=== PATIENT | male | born 1990 | race Caucasian/White ===

== ENCOUNTER → 2017-01-31 | Outpatient (CLI) | payer BC ==
[~2017-01-31] MED LIST: ALBU1.25 NEB; CETI10CA PO; FLUT16SP2 NAS
== END | disposition home or self-care (01) ==
LOC: CFH 12:38
PROVIDERS: ATTEND Internal Medicine Cardiovascular Disease
DX: I48.91 Unspecified atrial fibrillation (principal); I37.1 Nonrheumatic pulmonary valve insufficiency; I07.1 Rheumatic tricuspid insufficiency; R53.1 Weakness
CPT/HCPCS: 93306

== ENCOUNTER → 2017-04-26 | Outpatient (CLI) | payer BC | END | disposition home or self-care (01) | LOC: CARD 10:18 | PROVIDERS: ATTEND Internal Medicine Cardiovascular Disease | DX: I48.91 Unspecified atrial fibrillation (principal) | CPT/HCPCS: 93017 ==

== ENCOUNTER → 2017-05-16 | Outpatient (CLI) | payer BC ==
[~2017-05-16] VITALS: Ht 175.3 cm; Wt 74.5 kg
[~2017-05-16] MED LIST changes: +ASCO10004 PO; +LACT1CAP37 PO; +MULT-718 PO; +OMNIPAQUE 350 MG/ML, 150 ML BOTTLE ONE
[2017-05-16 10:40] VITALS: BP 152/88
[2017-05-16 11:32] LABS: HEMOGLOBIN 17.5 g/dL (13.7-18.0); WHITE BLOOD COUNT 5.9 x10^3/uL (3.4-10)
[2017-05-16 11:47] LABS: BLOOD UREA NITROGEN 16 mg/dL (7-18)
[2017-05-16 11:51] LABS: ASPARTATE AMINO TRANSFERASE 27 U/L (15-37)
== END | disposition home or self-care (01) ==
LOC: CFH 08:39
PROVIDERS: ATTEND Internal Medicine Cardiovascular Disease
DX: I48.91 Unspecified atrial fibrillation (principal)
CPT/HCPCS: 36415; 75572; 80053; 82565; 85025; 85610; 85730; Q9967

== ENCOUNTER 2017-05-18 07:02 | Observation (INO) | payer BC ==
[~2017-05-18] VITALS: Ht 175.3 cm; Wt 78.9 kg
[~2017-05-18 07:02] MED LIST changes: -OMNIPAQUE 350 MG/ML, 150 ML BOTTLE ONE
[2017-05-18] MEDS ORDERED: SODIUM CHLORIDE 0.9% 1,000 ML IV SCH (07:14)
[2017-05-18] MEDS ORDERED: SODIUM CHLORIDE 0.9% 1,000 ML IV ONE (07:30)
[2017-05-18] MEDS ORDERED: FENTANYL PF 250 MCG/5ML ONE ×2 (07:42→08:47)
[2017-05-18] MEDS ORDERED: MIDAZOLAM 1 MG/ML, 5ML ONE (07:43)
[2017-05-18] MEDS ORDERED: HEPARIN 1,000 UNITS/ML, 10ML ONE ×2 (07:46→09:46)
[2017-05-18] MEDS ORDERED: ISOPROTERENOL 0.2MG/ML, 5ML ONE (07:46)
[2017-05-18] MEDS ORDERED: LIDOCAINE 2%, 20ML ONE (07:46)
[2017-05-18] MEDS ORDERED: DEXAMETHASONE 4 MG/ML, 1ML ONE (08:00)
[2017-05-18] MEDS ORDERED: ONDANSETRON 2MG/ML, 2ML ONE (08:00)
[2017-05-18] MEDS ORDERED: PROPOFOL 10 MG/ML, 20ML ONE (08:00)
[2017-05-18] MEDS ORDERED: SUCCINYLCHOLINE 20 MG/ML, 10ML ONE (08:00)
[2017-05-18] MEDS ORDERED: PROTAMINE SULFATE 10 MG/ML, 5ML ONE (10:59)
[2017-05-18] MEDS ORDERED: ACETAMINOPHEN 325 MG TABLET PO PRN (11:00)
[2017-05-18] MEDS ORDERED: TEMPLATE NON-FORMULARY MED. (Albuterol Sulfate (Albuterol Sulfate**) 1 VIAL) NEB PRN (11:00)
[2017-05-18] MEDS ORDERED: ZOLPIDEM 5MG TABLET PO PRN (11:00)
[2017-05-18] MEDS ORDERED: HYDROcodone/APAP 5/325 TABLET PO ONE (11:30)
[2017-05-18] MEDS ORDERED: FENTANYL PF 100 MCG/2ML IV PRN (12:00)
[2017-05-18] MEDS ORDERED: ONDANSETRON 2MG/ML, 2ML IVPush PRN (12:00)
[2017-05-18] MEDS ORDERED: PROMETHAZINE 25 MG/ML, 1ML IV PRN (12:00)
[2017-05-18] MEDS ORDERED: MEPERIDINE/PF 25MG/0.5ML IVPush PRN (12:00)
[2017-05-18] MEDS ORDERED: MIDAZOLAM 1 MG/ML, 2ML IV PRN (12:00)
[2017-05-18] MEDS ORDERED: HYDROmorphone 1 MG/ML, 1ML IV PRN (12:00)
[2017-05-18] MEDS ORDERED: OXYcodone 5 MG/5 ML ORAL.SOL UDC PO PRN (12:00)
[2017-05-18] MEDS ORDERED: OXYcodone 5 MG/5 ML ORAL.SOL UDC ONE (12:30)
[2017-05-18] MEDS ORDERED: ACETAMINOPHEN 650 MG/20.3 ML UDC ONE (12:30)
[2017-05-18] MEDS ORDERED: FENTANYL PF 100 MCG/2ML ONE (12:30)
[2017-05-18] MEDS: CETIRIZINE 10 MG TABLET PO SCH (13:30)
[2017-05-18] MEDS ORDERED: ALBUTEROL SULFATE 2.5 MG/3 ML NPPB PRN (14:00)
[2017-05-18] MEDS ORDERED: APIXABAN 5 MG TABLET PO ONE ×2 (15:00→15:30)
[2017-05-18 15:43] VITALS: BP 125/77
[2017-05-18 19:37] VITALS: BP 134/84
[2017-05-18] MEDS: APIXABAN 5 MG TABLET PO SCH (20:24)
[2017-05-19 01:48] VITALS: BP 112/64
[2017-05-19] MEDS ORDERED: APIX5TAB PO (07:30)
[2017-05-19] MEDS ORDERED: KETOROLAC 30 MG/1 ML IVPush ONE (07:30)
[2017-05-19 08:01] VITALS: BP 128/77
[2017-05-19] MEDS: CETIRIZINE 10 MG TABLET PO SCH (08:30)
[2017-05-19] MEDS: APIXABAN 5 MG TABLET PO SCH (08:31)
[2017-05-19] MEDS ORDERED: FLUTICASONE NASAL SPRAY 16GM NAS SCH ×2 (09:00)
[2017-05-19] MEDS ORDERED: ASCORBIC ACID 500 MG TABLET PO SCH ×2 (09:00)
[2017-05-19] MEDS ORDERED: MULTIVITAMIN 1 TABLET PO SCH ×2 (09:00)
[2017-05-19] MEDS ORDERED: CETIRIZINE 10 MG TABLET PO SCH (09:00)
[2017-05-19] MEDS ORDERED: LACTOBACILLUS CHEW TABLET PO SCH ×2 (09:00)
[2017-05-19 13:26] VITALS: BP 135/81
== END 2017-05-19 15:10 | disposition home or self-care (01) ==
LOC: CACL 07:02 → ORIP 10:57 → 5SO 13:17 → DCLOUNGE 05-19 14:52
PROVIDERS: ADMIT Internal Medicine Cardiovascular Disease; ATTEND Internal Medicine Cardiovascular Disease
DX: I48.91 Unspecified atrial fibrillation (principal); I49.5 Sick sinus syndrome
CPT/HCPCS: 71020; 85347; 93005; 93308; 93312; 93321; 93325; 93613; 93656; 93662; 96374; C1730; C1732; C1759; C1766; C1893; C1894; G0378; J0330; J1100; J1644; J1885; J2250; J2405; J2704; J2720; J3010; J3490

== ENCOUNTER 2020-09-16 10:34 | Emergency (ER) | payer BC, OTHER ==
[~2020-09-16] VITALS: Ht 170.2 cm; Wt 79.0 kg
[~2020-09-16 10:34] MED LIST changes: +APIX5TAB PO; +ASCO100018 PO; -ASCO10004 PO
[2020-09-16] MEDS ORDERED: ASPIRIN 81 MG TABLET CHEW ONE (11:21)
[2020-09-16] MEDS ORDERED: SODIUM CHLORIDE FLUSH 10ML SYR IVF ONE (11:30)
[2020-09-16] MEDS ORDERED: ASPIRIN 81 MG TABLET CHEW PO ONE (11:30)
--- NOTE | 2020-09-16 11:40 | NUR ---
PT PLACED ON ALL ROOM MONITORING. WARM BLANKET PROVIDED, CALL LIGHT WITHIN REACH. IV PLACED, LABS DRAWN WITH START. PCXR COMPLETED, US AT BS.
[2020-09-16 11:55] LABS: BASOPHILS % (AUTO) 0 % (0-1); EOSINOPHILS % (AUTO) 1 % (1-7); LYMPHOCYTES % (AUTO) 19 % (22-44); MEAN CORPUSCULAR HEMOGLOBIN 30.7 pg (27.5-34.5); MEAN CORPUSCULAR HGB CONC 34.6 g/dL (33.2-36.2); MEAN PLATELET VOLUME 7.7 fL (7.4-10.4); MONOCYTES % (AUTO) 8 % (2-9); NEUTROPHILS % (AUTO) 72 % (42-75); PLATELET COUNT 378 x10^3/uL (130-400); RED CELL DISTRIBUTION WIDTH 13.1 % (9.4-14.8)
[2020-09-16 12:01] LABS: ALBUMIN 4.3 g/dL (3.4-5.0); ANION GAP 6 mmol/L (5-15); CALCIUM 9.6 mg/dL (8.5-10.1); CHLORIDE 111 mmol/L (98-107); CREATININE 1.12 mg/dL (0.7-1.3)
[2020-09-16 12:05] LABS: TROPONIN I < 0.015 ng/mL (0.000-0.045)
[2020-09-16 12:09] LABS: MD NO
--- NOTE | 2020-09-16 12:15 | NUR ---
ROUNDED ON PT, PT RESTING, NAD. CALL LIGHT WITHIN REACH. DISCOMFORT UNCHANGED. VSS/UPDATED IN COMPUTER. AWAITING DDIMER RESULT.
[2020-09-16] MEDS ORDERED: LORazepam 2 MG/ML, 1ML IVPush ONE (12:30)
[2020-09-16] MEDS ORDERED: LORazepam 2 MG/ML, 1ML ONE (12:39)
--- NOTE | 2020-09-16 12:44 | NUR ---
ATIVAN GIVEN PER ERP ORDER. CALL LIGHT WITHIN REACH, DR PASCAL IN TO SEE PT.
[2020-09-16 13:19] VITALS: BP 131/75
== END 2020-09-16 13:39 | disposition home or self-care (01) ==
LOC: ED 12:09
DX: R00.0 Tachycardia, unspecified (principal); R07.89 Other chest pain; R11.0 Nausea; R00.2 Palpitations; I48.91 Unspecified atrial fibrillation; M79.89 Other specified soft tissue disorders
CPT/HCPCS: 36415; 71045; 80048; 82040; 83880; 84484; 85025; 85379; 93005; 93971; 96374; 99285; J2060

== ENCOUNTER 2020-09-17 16:50 | Emergency (ER) | payer OTHER ==
[~2020-09-17] VITALS: Ht 170.2 cm; Wt 80.6 kg
--- NOTE | 2020-09-17 17:23 | NUR ---
PT REPORTS COMING INTO ED YESTERDAY FOR CP. TODAY STATES HE WOKE UP WITH PURPLE VISION IN THE LEFT EYE AND NUMBNESS BETWEEN LEFT EYE AND EAR. PT STATES IT NOW FEELS THOUGH IT IS MOVING UP INTO HIS FOREHEAD. PT STATES HE IS SLIGHTLY DIZZY WITH WEAKNESS IN BOTH ARMS AND LEGS. GROSS NEURO INTACT, PERRLA INTACT, ANOx4. FACIAL SYMMETRY NOTED. WCTM PT PLACED ON SPO2/BP/ECG MONITORING.
--- NOTE | 2020-09-17 18:12 | NUR ---
PT TO CT AT THIS TIME
--- NOTE | 2020-09-17 18:22 | NUR ---
pt to ct at this time, nad, no change in condition, wctm.
[2020-09-17 18:32] LABS: BASOPHILS % (AUTO) 1 % (0-1); EOSINOPHILS % (AUTO) 1 % (1-7); LYMPHOCYTES % (AUTO) 21 % (22-44); MEAN CORPUSCULAR HEMOGLOBIN 30.7 pg (27.5-34.5); MEAN CORPUSCULAR HGB CONC 34.1 g/dL (33.2-36.2); MEAN PLATELET VOLUME 7.7 fL (7.4-10.4); MONOCYTES % (AUTO) 11 % (2-9); NEUTROPHILS % (AUTO) 66 % (42-75); PLATELET COUNT 395 x10^3/uL (130-400); RED BLOOD COUNT 5.68 x10^6/uL (4.38-5.82); RED CELL DISTRIBUTION WIDTH 12.9 % (9.4-14.8)
[2020-09-17 18:41] LABS: CHLORIDE 108 mmol/L (98-107)
[2020-09-17 18:44] LABS: MD NO
[2020-09-17 18:50] LABS: ALANINE AMINOTRANSFERASE 44 U/L (12-78); ALKALINE PHOSPHATASE 90 U/L (45-117); ANION GAP 6 mmol/L (5-15); BILIRUBIN,TOTAL 0.3 mg/dL (0.2-1.0); CREATININE 0.99 mg/dL (0.7-1.3); TOTAL PROTEIN 7.4 g/dL (6.4-8.2); TROPONIN I < 0.015 ng/mL (0.000-0.045)
[2020-09-17 19:10] LABS: MICROSCOPIC AUTO
--- NOTE | 2020-09-17 19:51 | NUR ---
pt resting on el[facility] roman, waiting for ct read, no change in condition, provided ice chips for comfort, wctm.
--- NOTE | 2020-09-17 19:55 | NUR ---
PT REPORTS NAUSEA AT THIS TIME. NAD, NO CHANGE IN CONDITION, WCTM.
[2020-09-17] MEDS ORDERED: ONDANSETRON ODT 8 MG ONE (20:41)
[2020-09-17] MEDS ORDERED: ONDANSETRON ODT 8 MG PO ONE (21:00)
[2020-09-17] MEDS ORDERED: ONDANSETRON 2MG/ML, 2ML IVPush ONE (21:00)
[2020-09-17] MEDS ORDERED: SODIUM CHLORIDE 0.9% 1,000ML IVBOLUS ONE ×2 (21:00→21:30)
[2020-09-17] MEDS ORDERED: SODIUM CHLORIDE FLUSH 10ML SYR IVF ONE (21:30)
[2020-09-17] MEDS ORDERED: MECLIZINE CHEWABLE 25 MG TAB PO ONE (21:30)
--- NOTE | 2020-09-17 21:30 | NUR ---
LATE ENTRY D/T PT CARE: PT NAD, RESTING ON GURNEY, APPEARS COMFORTABLE, NO CHANGE IN CONDITION, WCTM.
[2020-09-17] MEDS ORDERED: MECLIZINE CHEWABLE 25 MG TAB ONE (21:55)
[2020-09-17] MEDS ORDERED: ALBUTEROL SULFATE 2.5 MG/3 ML NEB PRN (22:30)
[2020-09-17] MEDS ORDERED: POTASSIUM CHLORIDE 20 MEQ TAB.ER.PRT PO ONE (22:30)
[2020-09-17] MEDS ORDERED: ACETAMINOPHEN 650 MG/20.3 ML UDC PO PRN (22:30)
[2020-09-17] MEDS ORDERED: POLYETHYLENE GLYCOL 17 GM PACKET PO PRN (22:30)
[2020-09-17] MEDS ORDERED: ONDANSETRON 4 MG TABLET PO PRN (22:30)
[2020-09-17] MEDS ORDERED: DOCUSATE 100 MG CAPSULE PO PRN (22:30)
[2020-09-17] MEDS ORDERED: LABETALOL 5MG/ML, 20ML IV PRN (22:30)
[2020-09-17] MEDS ORDERED: BISACODYL 10 MG SUPP PR PRN (22:30)
[2020-09-17] MEDS ORDERED: GADOTERATE 10 MMOL/20 ML VIAL ONE (22:34)
--- NOTE | 2020-09-17 22:40 | NUR ---
RN CHANGED LINENS PER REQUEST, APPLIED CONDOM CATH FOR COMFORT, NAD, DENIES ADDITIONAL NEEDS WCTM.
[2020-09-17] MEDS ORDERED: POTASSIUM CHLORIDE 20 MEQ TAB.ER.PRT ONE (23:28)
[2020-09-17 23:29] LABS: HCT (SEDRATE) 51.1 % (39.2-51.8)
--- NOTE | 2020-09-18 00:01 | NUR ---
PT MEDICATED PER MAR, DENIES WANTING MEAL AT THIS TIME, NAD, RESTING ON GURNEY. PROVIDED PILLOW FOR COMFORT, UPDATED ON POC, WCTM . WAITING FOR ADMIT BED
--- NOTE | 2020-09-18 00:58 | NUR ---
REPORT FROM FRANCHESKA PATE.
--- NOTE | 2020-09-18 01:00 | NUR ---
BEDSIDE REPORT TO ALESSIA PATE, PT CARE TRANSFERRED AT THIS TIME. PT NAD, RESTING ON GURNEY, STATES HE IS UNABLE TO SLEEP, DENIES ADDITIONAL NEEDS, NO CHANGE IN CONDITION, WCTM.
--- NOTE | 2020-09-18 02:16 | NUR ---
PT PROVIDED WITH WATER, TOLERATED PO FLUIDS NO DIFFICULTY AT THIS TIME [facility]
--- NOTE | 2020-09-18 02:45 | NUR ---
report received from ciaran angelo
--- NOTE | 2020-09-18 03:52 | NUR ---
pt moved to hospital bed, requesting water.
--- NOTE | 2020-09-18 05:00 | NUR ---
PT SLEEPING, NO NEEDS AT THIS TIME. RESP EVEN AND UNLABORED
[2020-09-18 05:28] LABS: BASOPHILS % (AUTO) 0 % (0-1); EOSINOPHILS % (AUTO) 1 % (1-7); LYMPHOCYTES % (AUTO) 24 % (22-44); MEAN CORPUSCULAR HEMOGLOBIN 30.7 pg (27.5-34.5); MEAN PLATELET VOLUME 7.8 fL (7.4-10.4); MONOCYTES % (AUTO) 10 % (2-9); NEUTROPHILS % (AUTO) 64 % (42-75); PLATELET COUNT 357 x10^3/uL (130-400); RED BLOOD COUNT 5.31 x10^6/uL (4.38-5.82); RED CELL DISTRIBUTION WIDTH 12.7 % (9.4-14.8)
[2020-09-18 05:29] LABS: ALBUMIN 3.6 g/dL (3.4-5.0); ANION GAP 7 mmol/L (5-15); CALCIUM 8.3 mg/dL (8.5-10.1); CHLORIDE 108 mmol/L (98-107)
[2020-09-18 05:33] LABS: ALANINE AMINOTRANSFERASE 40 U/L (12-78); ALKALINE PHOSPHATASE 77 U/L (45-117); BILIRUBIN,TOTAL 0.6 mg/dL (0.2-1.0); CHOL/HDL RATIO 6.3; CHOLESTEROL, TOTAL 227 mg/dL (140-239); CREATININE 1.02 mg/dL (0.7-1.3); HDL CHOL % 16 % (26-37); HDL CHOLESTEROL (DIRECT) 36 mg/dL (40-60); LDL CHOLESTEROL,CALCULATED 156 mg/dL (54-169); LDL/HDL RATIO 4.3 (0.5-3.0); TOTAL PROTEIN 6.7 g/dL (6.4-8.2); TRIGLYCERIDES 174 mg/dL (50-200); VLDL CHOLESTEROL 35 mg/dL (0-25)
[2020-09-18 05:39] LABS: MD NO
--- NOTE | 2020-09-18 06:06 | NUR ---
PT SLEEPING, NO NEEDS AT THIS TIME. RESP EVEN AND UNLABORED
--- NOTE | 2020-09-18 07:00 | NUR ---
report given to carmelita angelo
[2020-09-18 07:05] VITALS: BP 118/67
--- NOTE | 2020-09-18 07:54 | NUR ---
MORNING MEDS REQ FROM PHARMACY.
--- NOTE | 2020-09-18 08:12 | NUR ---
PT HAS C/O NEW LT SIDED LIP NUMBNESS UPON WAKING THIS MORNING, MESSAGE LEFT FOR .
--- NOTE | 2020-09-18 08:37 | NUR ---
TELEPHONE CALL ESTEFANY ALARCON, UPDATED ON PT CONCERNS. STATES WAITING FOR CAROTID STUDIES, POTENTIAL FO DC TODAY.
--- NOTE | 2020-09-18 08:56 | NUR ---
PT PROVIDED W/ MEAL TRAY. RESTING ON HOSPITAL BED W/ CALL LIGHT IN REACH AND SIDE RAILS UPX2. RESP EVEN AND UNLABORED, CLAY.
[2020-09-18] MEDS ORDERED: ASPIRIN 81 MG TABLET CHEW PO/NG SCH (09:00)
[2020-09-18] MEDS ORDERED: ASCORBIC ACID 500 MG TABLET PO SCH (09:00)
[2020-09-18] MEDS ORDERED: CETIRIZINE 10 MG TABLET PO SCH (09:00)
[2020-09-18] MEDS ORDERED: MULTIVITAMINS/MINERALS TABLET PO SCH (09:00)
[2020-09-18] MEDS ORDERED: FLUTICASONE NASAL SPRAY 16GM NAS SCH (09:00)
[2020-09-18] MEDS ORDERED: MECL25TA PO (12:12)
[2020-09-18] MEDS ORDERED: ATORVASTATIN 40 MG TABLET PO SCH (21:00)
== END 2020-09-18 12:38 | disposition home or self-care (01) ==
LOC: ED 19:30 → UNDOADMIN 09-18 00:37 → EDIP 09-18 00:37
DX: G80.9 Cerebral palsy, unspecified (principal); R20.2 Paresthesia of skin; R42 Dizziness and giddiness; I51.7 Cardiomegaly; R00.0 Tachycardia, unspecified; H53.9 Unspecified visual disturbance; I48.91 Unspecified atrial fibrillation
CPT/HCPCS: 36415; 70450; 70553; 80053; 80061; 81001; 83735; 84484; 85025; 85651; 93005; 96360; 96361; 99285; A9575; J7030; Q0162

== ENCOUNTER 2020-12-17 05:23 | Observation (INO) | payer OTHER ==
[~2020-12-17] VITALS: Ht 170.2 cm; Wt 79.1 kg
[~2020-12-17 05:23] MED LIST changes: +MECL25TA PO
[2020-12-17 06:26] VITALS: BP 142/91
[2020-12-17] MEDS ORDERED: SODIUM CHLORIDE 0.9% 1,000 ML IV SCH (06:30)
[2020-12-17] MEDS ORDERED: SODIUM CHLORIDE 0.9% 1,000 ML IV ONE (06:30)
[2020-12-17] MEDS ORDERED: APIX5TAB PO (06:38)
[2020-12-17] MEDS ORDERED: ALBU8.5H8 INH (06:38)
[2020-12-17 06:48] LABS: BASOPHILS % (AUTO) 1 % (0-1); EOSINOPHILS % (AUTO) 3 % (1-7); LYMPHOCYTES % (AUTO) 37 % (22-44); MEAN CORPUSCULAR HEMOGLOBIN 30.6 pg (27.5-34.5); MEAN CORPUSCULAR HGB CONC 34.9 g/dL (33.2-36.2); MEAN PLATELET VOLUME 7.6 fL (7.4-10.4); MONOCYTES % (AUTO) 11 % (2-9); NEUTROPHILS % (AUTO) 49 % (42-75); PLATELET COUNT 361 x10^3/uL (130-400); RED BLOOD COUNT 5.75 x10^6/uL (4.38-5.82); RED CELL DISTRIBUTION WIDTH 12.5 % (9.4-14.8)
[2020-12-17 06:49] LABS: MD NO
[2020-12-17 06:50] LABS: ANION GAP 7 mmol/L (5-15); CALCIUM 8.9 mg/dL (8.5-10.1); CHLORIDE 107 mmol/L (98-107); CREATININE 1.04 mg/dL (0.7-1.3)
[2020-12-17] MEDS ORDERED: FENTANYL PF 250 MCG/5ML ONE (07:49)
[2020-12-17] MEDS ORDERED: MIDAZOLAM 1 MG/ML, 2ML ONE (07:49)
[2020-12-17] MEDS ORDERED: ROCURONIUM 10MG/ML,5ML ONE (07:49)
[2020-12-17] MEDS ORDERED: PROPOFOL 10 MG/ML, 20ML ONE (07:49)
[2020-12-17] MEDS ORDERED: DEXAMETHASONE 4 MG/ML, 1ML ONE ×2 (07:52)
[2020-12-17] MEDS ORDERED: PHENYLEPHRINE 10 MG/ML ONE (08:02)
[2020-12-17] MEDS ORDERED: ONDANSETRON 2MG/ML, 2ML ONE (08:02)
[2020-12-17] MEDS ORDERED: LIDOCAINE 2%, 20ML ONE (08:25)
[2020-12-17] MEDS ORDERED: EPHEDRINE 50 MG/ML, 1ML ONE (08:30)
[2020-12-17] MEDS ORDERED: ISOPROTERENOL 0.2MG/ML, 5ML ONE (10:25)
[2020-12-17] MEDS ORDERED: APIXABAN 5 MG TABLET ONE (11:59)
[2020-12-17] MEDS ORDERED: MEPERIDINE/PF 25MG/0.5ML IVPush PRN (12:00)
[2020-12-17] MEDS: APIXABAN 5 MG TABLET PO SCH ×2 (12:00→20:15)
[2020-12-17] MEDS ORDERED: ZOLPIDEM 5MG TABLET PO PRN (12:00)
[2020-12-17] MEDS ORDERED: ALBUTEROL SULFATE 2.5 MG/3 ML NPPB PRN (12:00)
[2020-12-17] MEDS ORDERED: PROMETHAZINE 25 MG/ML, 1ML IVPush PRN (12:00)
[2020-12-17] MEDS ORDERED: LABETALOL 5MG/ML, 20ML IV PRN (12:00)
[2020-12-17] MEDS ORDERED: FENTANYL PF 100 MCG/2ML IV PRN (12:00)
[2020-12-17] MEDS ORDERED: EPHEDRINE 50 MG/ML, 1ML IVPush PRN (12:00)
[2020-12-17] MEDS ORDERED: hydrALAzine 20 MG/ML, 1ML IV PRN (12:00)
[2020-12-17] MEDS ORDERED: MIDAZOLAM 1 MG/ML, 2ML IV PRN (12:00)
[2020-12-17] MEDS ORDERED: OXYcodone 5 MG/5 ML ORAL.SOL UDC PO PRN (12:00)
[2020-12-17] MEDS ORDERED: ONDANSETRON 2MG/ML, 2ML IVPush PRN ×2 (12:00)
[2020-12-17] MEDS ORDERED: DIPHENHYDRAMINE 50 MG/ML, 1ML IVPush PRN ×2 (12:00)
[2020-12-17] MEDS ORDERED: PROMETHAZINE 12.5 MG SUPP PR PRN (12:00)
[2020-12-17] MEDS ORDERED: DIAZEPAM 5 MG/ML, 2ML IVPush PRN (12:00)
[2020-12-17] MEDS ORDERED: APIXABAN 5 MG TABLET PO SCH (12:00)
[2020-12-17] MEDS ORDERED: ACETAMINOPHEN 325 MG TABLET PO PRN (12:00)
[2020-12-17] MEDS ORDERED: HYDROmorphone 1 MG/ML, 1ML INJ IVPush PRN (12:00)
[2020-12-17] MEDS ORDERED: ALBUTEROL HFA 90 MCG/SPRAY INH PRN (12:00)
[2020-12-17] MEDS: ACETAMINOPHEN 325 MG TABLET PO PRN ×2 (15:08→19:35)
[2020-12-17 19:40] VITALS: BP 133/83
[2020-12-17] MEDS: COLCHICINE 0.6 MG CAPSULE PO SCH (20:15)
[2020-12-18] MEDS: ACETAMINOPHEN 325 MG TABLET PO PRN ×2 (00:42→10:18)
[2020-12-18 00:59] VITALS: BP 129/80
[2020-12-18 06:38] VITALS: BP 154/74
[2020-12-18] MEDS: COLCHICINE 0.6 MG CAPSULE PO SCH (08:47)
[2020-12-18] MEDS: APIXABAN 5 MG TABLET PO SCH (08:48)
[2020-12-18] MEDS ORDERED: ASCORBIC ACID 500 MG TABLET PO SCH (09:00)
[2020-12-18] MEDS ORDERED: MULTIVITAMINS/MINERALS TABLET PO SCH (09:00)
[2020-12-18] MEDS ORDERED: FLUTICASONE NASAL SPRAY 16GM NAS SCH (09:00)
[2020-12-18] MEDS ORDERED: CETIRIZINE 10 MG TABLET PO SCH (09:00)
[2020-12-18] MEDS ORDERED: COLC0.6C3 PO (10:39)
[2020-12-18 13:56] VITALS: BP 131/81
== END 2020-12-18 15:24 | disposition home or self-care (01) ==
LOC: CACL 05:23 → ORIP 11:31 → 5SO 13:52 → DCLOUNGE 12-18 15:15
PROVIDERS: ADMIT Internal Medicine Cardiovascular Disease; ATTEND Internal Medicine Cardiovascular Disease
DX: I48.91 Unspecified atrial fibrillation (principal); I48.92 Unspecified atrial flutter; Q21.1 Atrial septal defect; J45.909 Unspecified asthma, uncomplicated; Z79.01 Long term (current) use of anticoagulants; Z79.899 Other long term (current) drug therapy
CPT/HCPCS: 36415; 80048; 85025; 85347; 93306; 93312; 93321; 93325; 93356; 93613; 93623; 93656; 93657; 93662; C1730; C1732; C1759; C1766; C1893; C1894; G0378; J1100; J2250; J2370; J2405; J2704; J3010; J3490

== ENCOUNTER 2020-12-25 17:25 | Emergency (ER) | payer OTHER ==
[~2020-12-25] VITALS: Ht 170.2 cm; Wt 78.7 kg
[~2020-12-25 17:25] MED LIST changes: +ALBU8.5H8 INH; +COLC0.6C3 PO
--- NOTE | 2020-12-25 17:40 | NUR ---
Pt reports he had ablation done 12/17/2020. Has been noticing increased swelling, bruising, fluid buildupin scrotum, and increased pain since then. Hx a-fib, asthma, aspbergers.
[2020-12-25] MEDS ORDERED: ONDANSETRON 2MG/ML, 2ML ONE (18:25)
[2020-12-25] MEDS ORDERED: HYDROmorphone 1 MG/ML, 1ML INJ ONE (18:25)
[2020-12-25] MEDS ORDERED: ONDANSETRON 2MG/ML, 2ML IVPush ONE (18:30)
[2020-12-25] MEDS ORDERED: SODIUM CHLORIDE FLUSH 10ML SYR IVF ONE (18:30)
[2020-12-25] MEDS ORDERED: HYDROmorphone 1 MG/ML, 1ML INJ IV ONE (18:30)
--- NOTE | 2020-12-25 18:30 | NUR ---
UA collected and sent to lab.
[2020-12-25 18:36] LABS: MICROSCOPIC NOT IND
--- NOTE | 2020-12-25 18:40 | NUR ---
IV started, labs drawn and sent, medicated per eMAR.
--- NOTE | 2020-12-25 18:42 | NUR ---
Pt to US
[2020-12-25] MEDS ORDERED: OMNIPAQUE 350 MG/ML, 100ML BOTTLE ONE (19:00)
[2020-12-25 19:02] LABS: BASOPHILS % (AUTO) 0 % (0-1); EOSINOPHILS % (AUTO) 2 % (1-7); LYMPHOCYTES % (AUTO) 19 % (22-44); MEAN CORPUSCULAR HEMOGLOBIN 30.6 pg (27.5-34.5); MEAN CORPUSCULAR HGB CONC 34.4 g/dL (33.2-36.2); MEAN PLATELET VOLUME 7.2 fL (7.4-10.4); MONOCYTES % (AUTO) 10 % (2-9); NEUTROPHILS % (AUTO) 69 % (42-75); PLATELET COUNT 430 x10^3/uL (130-400); RED BLOOD COUNT 5.14 x10^6/uL (4.38-5.82); RED CELL DISTRIBUTION WIDTH 12.7 % (9.4-14.8)
[2020-12-25 19:05] LABS: ALANINE AMINOTRANSFERASE 167 U/L (12-78); ALBUMIN 4.1 g/dL (3.4-5.0); ANION GAP 6 mmol/L (5-15); CHLORIDE 108 mmol/L (98-107); CREATININE 1.01 mg/dL (0.7-1.3); MD NO
[2020-12-25 19:07] LABS: ALKALINE PHOSPHATASE 106 U/L (45-117); BILIRUBIN,TOTAL 0.5 mg/dL (0.2-1.0)
--- NOTE | 2020-12-25 19:08 | NUR ---
Pt back from US.
--- NOTE | 2020-12-25 19:14 | NUR ---
Pt now rates pain 4/10, was 8/10 before medication.
--- NOTE | 2020-12-25 19:24 | NUR ---
Pt to imaging
[2020-12-25 19:37] LABS: INTERNATIONAL NORMALIZED RATIO 0.95 (0.93-1.1); PROTHROMBIN TIME 10.2 Seconds (9.6-11.5)
--- NOTE | 2020-12-25 19:47 | NUR ---
Pt back from imaging.
--- NOTE | 2020-12-25 20:23 | NUR ---
Assisted pt with bedside urinal. Pt denies other needs at this time.
--- NOTE | 2020-12-25 20:39 | NUR ---
Dr. Samson at bedside.
[2020-12-25 20:41] VITALS: BP 142/85
--- NOTE | 2020-12-25 20:46 | NUR ---
IV removed, catheter intact, hemostasis achieved, dressing applied. Pt understands and agrees with discharge plan and instructions.
== END 2020-12-25 21:11 | disposition home or self-care (01) ==
LOC: ED 21:00
DX: S30.21XA Contusion of penis, initial encounter (principal); S30.22XA Contusion of scrotum and testes, initial encounter; N50.811 Right testicular pain; R10.2 Pelvic and perineal pain; N50.812 Left testicular pain; I71.4 Abdominal aortic aneurysm, without rupture; I48.91 Unspecified atrial fibrillation; X58.XXXA Exposure to other specified factors, initial encounter; Y93.89 Activity, other specified; Y92.89 Other specified places as the place of occurrence of the external cause; Y99.8 Other external cause status
CPT/HCPCS: 36415; 72191; 76870; 80053; 81003; 85025; 85610; 85730; 93005; 96374; 96375; 99285; J1170; J2405; Q9967